=== PATIENT | male | born 1980 | race Caucasian/White ===

== ENCOUNTER 2020-03-26 21:22 | Emergency (ER) | payer MEDICAID, SELFPAY ==
[2020-03-26 21:30] VITALS: BP 143/93; PULSE 106; RESP 16; TEMP 37.3; O2SAT 98; BMI 18.2
--- NOTE | 2020-03-26 21:30 | HMH.EDGENADL ---
ED Disposition Clinical Impression: Cutaneous abscess Qualifiers: Site of cutaneous abscess: extremity Site of cutaneous abscess of extremity: lower extremity Laterality: left Qualified Code(s): L02.416 - Cutaneous abscess of left lower limb Disposition: Home, Self-Care Condition on Discharge: Good Instructions: DI for Incision and Drainage of a Skin Abscess Additional Instructions: Bactrim as prescribed. Ibuprofen for pain. Additional instructions for ABSCESS: Day one and two: Remove the bandage and shower the area, leaving the packing in place. Gently blot dry. Apply a bandage. Day three: Remove the bandage. Wet the packing in the shower and remove the packing. Apply a bandage. Days four and beyond: Clean area with soap and water in the shower daily. Apply a bandage daily until the wound is closed completely. Return to the emergency department if increasing pain, swelling, redness, redstreaks or fever greater than 101 degrees. Prescriptions: Sulfamethoxazole/Trimethoprim [Bactrim DS tablet] 1 each PO BID #20 tab Transmission Status: Pending to [facility]/pharmacy #[id number] Referrals: Amol Bass [Primary Care Provider] - - Critical Care Critical Care Time: No Attestation: On 03/26/20, the high probability of a clinically significant, sudden or life threatening deterioration of the following system(s) required my full and direct attention, intervention and personal management. The time I documented below is in addition to time spent performing reported procedures but includes the following listed in this critical care notation. Medical Decision Making - Nolan Inquiry Pt receiving controlled substance: No Vital Signs: 03/26/20 21:30 Temperature 99.1 F Temperature Source Oral Pulse Rate [Right Brachial] 106 H Respiratory Rate 16 Blood Pressure [Right Arm] 143/93 H Blood Pressure Mean [Right Arm] 109 Blood Pressure Source [Right Arm] Automatic Cuff Blood Pressure Position [Right Arm] Sitting 02 Sat by Pulse Oximetry 98 Oxygen Delivery Method Room Air Orders (Tests/Meds): ED MEDICATIONS Discontinued Medications Generic Name Dose Route Start Last Admin Trade Name Freq PRN Reason Stop Dose Admin Lidocaine/Epinephrine 10 ml 03/26/20 21:38 Lidocaine 2% W/Epi 1:100,000 20ml Vial IJ 03/26/20 21:39 ONCE ONE ORDERS Category Date Time Status Wound Culture and Gram Stain Stat Micro 03/26/20 21:39 Ordered General Adult HPI - General Stated complaint: spot on left leg Time Seen by Provider: 03/26/20 21:30 - History of Present Illness HPI narrative: 2-day history of a spot on his lower left anterior thigh. He thought it was a spider bite. Complains of pain associated with it. He went [facility] emergency department last night and he says they stuck a needle in it and got very little out . Incision and drainage was not performed. They gave him a prescription for antibiotic and ibuprofen. He did not have time to fill his prescriptions today. He returns because of increased pain. He also has developed a white spot over the surface of it that was not there yesterday. He daija an ink alirio around the area of redness yesterday himself. - Related Data Previous Rx's Medication Instructions Recorded Sulfamethoxazole/Trimethoprim 1 each PO BID #20 tab 03/26/20 [Bactrim DS tablet] Allergies Allergy/AdvReac Type Severity Reaction Status Date / Time codeine Allergy Severe Difficulty Verified 03/26/20 21:35 Breathing [facility] History - Hepatitis A Screen Attestation statement:: This patient has been screened for Hepatitis A risk factors. I have reviewed the patient's past medical history: Yes Medical History: Denies:: Cancer, Diabetes Mellitus Type 1, Diabetes Mellitus Type 2, MRSA Amputation: No Fractures: No - Social History Smoking Status: Current every day smoker Tobacco Type: cigarettes # Packs/Day (cigarettes): 1 Alcohol Intake: [place]
[2020-03-26 22:15] VITALS: BP 124/70; PULSE 98; RESP 17; TEMP 37.3; O2SAT 97
== END 2020-03-26 22:18 | disposition home or self-care (01) ==
PROVIDERS: Emergency Provider Emergency Medicine; PCP Pediatrics
DX: L02.416 Cutaneous abscess of left lower limb (principal); F17.210 Nicotine dependence, cigarettes, uncomplicated
CPT/HCPCS: 10060; 87070; 87186; 87205; 99283

== ENCOUNTER 2020-04-10 13:03 | Emergency (ER) | payer MEDICAID, SELFPAY ==
[2020-04-10 13:04] VITALS: BP 119/83; PULSE 89; RESP 18; TEMP 36.7; O2SAT 97; O2SAT 98; BMI 17.4
--- NOTE | 2020-04-10 13:22 | XR_ITS ---
PROCEDURE: XR CHEST 2V CLINICAL HISTORY: pain COMPARISON: CXR2V XR chest 2V from 07/25/2018 CXR2V XR chest 2V from 12/06/2018 FINDINGS: The cardiomediastinal silhouette and pulmonary vascularity are within normal limits. The lungs are clear without infiltrates, suspicious nodules, or pleural effusions. No acute bony abnormalities. IMPRESSION: No acute findings. Dictated by: Roland Woody MD 04/10/2020 14:40 Electronically signed by Roland Woody MD in [place] 04/10/2020 14:40
[2020-04-10 13:28] VITALS: BP 119/83; PULSE 89; RESP 18; TEMP 36.7; O2SAT 89; BMI 17.4
--- NOTE | 2020-04-10 13:42 | HMH.EDUTC ---
[facility] Disposition Clinical Impression: COPD exacerbation Disposition: Home, Self-Care Condition on Discharge: Good Instructions: Chronic Obstructive Pulmonary Disease Additional Instructions: Drink plenty of fluids. Take tylenol or ibuprofen for pain or fever. Take the medications as directed. Follow up with your regular doctor. GO TO THE ER FOR ANY WORSENING SYMPTOMS Don't start the oral steroids until tomorrow, since you had the shot here today. Prescriptions: methylPREDNISolone [Medrol] 4 mg PO DIRECTED 6 Days #21 tab.[email or web address] Transmission Status: Received by [facility]/pharmacy #[id number] Azithromycin [Z-Luiz 250mg Tab*] 250 mg PO UD DOSE PK #6 tab Transmission Status: Received by [facility]pharmacy #[id number] Referrals: Amol Bass [Primary Care Provider] - Forms: Work/School Release Time of Disposition: 14:09 Medical Decision Making - Medical Records Medical records reviewed: No: I reviewed the patient's medical records. - Nolan Inquiry Pt receiving controlled substance: No Vital Signs: 04/10/20 13:04 04/10/20 13:28 04/10/20 14:10 Temperature 98.1 F 98.1 F 98.1 F Temperature Source Oral Oral Pulse Rate 89 Pulse Rate [Left Radial] 89 89 Respiratory Rate 18 18 18 Blood Pressure 119/83 Blood Pressure [Right Arm] 119/83 119/83 Blood Pressure Mean [Right Arm] 95 95 Blood Pressure Source [Right Arm] Automatic Cuff Blood Pressure Position [Right Arm] Sitting Sitting 02 Sat by Pulse Oximetry 97 89 L Oxygen Delivery Method Room Air Room Air Orders (Tests/Meds): ED MEDICATIONS Discontinued Medications Generic Name Dose Route Start Last Admin Trade Name Norah PRN Reason Stop Dose Admin Ceftriaxone Sodium 1 gm 04/10/20 13:42 04/10/20 13:55 Rocephin 1gm Vial IM 04/10/20 13:43 1 gm ONCE ONE Administration Protocol Lidocaine HCl 0 ml 04/10/20 13:42 04/10/20 13:55 Lidocaine 1% 10ml Mdv IM 04/10/20 13:43 2.1 ml ONCE ONE Administration Methylprednisolone Sodium Succinate 125 mg 04/10/20 13:42 04/10/20 13:55 Solu-Medrol 125mg/2ml Vial IM 04/10/20 13:43 125 mg ONCE ONE Administration [facility] HPI - General Stated complaint: flare up with copd Time Seen by Provider: 04/10/20 13:42 Mode of Arrival: Ambulatory Source of Information: Patient Limitations: No Limitations Description of Symptoms (Recalled from Triage Doc. by RN): PATIENT C/O PAIN TO RIGHT UPPER RIB AREA AND UPPER RIGHT BACK/ SHOULDER AREA THAT INCREASES WITH INSPIRATION. DENIES FEVER AND COUGH. HE STATES HE HAS COPD AND THIS PAIN IS SIMILAR TO PAST FLAREUPS HEENT Symptoms (Recalled from RN notes): No Resp Symptoms (Recalled from RN notes): Yes Skin Symptoms (Recalled from RN notes): No MS Symptoms (Recalled from RN notes): Yes Functional Status (Recalled from RN notes): WNL - History of Present Illness Provider Complaint: He reports that he thinks that he is having a flare up of his copd. He also reports pleuritic type right sided chest pain at time. He has a history of copd. - Related Data Previous Rx's Medication Instructions Recorded Azithromycin [Z-Luiz 250mg Tab*] 250 mg PO UD DOSE PK #6 tab 04/10/20 methylPREDNISolone [Medrol] 4 mg PO DIRECTED 6 Days #21 04/10/20 tab.[email or web address] Allergies Allergy/AdvReac Type Severity Reaction Status Date / Time codeine Allergy Severe Difficulty Verified 03/26/20 21:35 Breathing - Worker's Comp Is this a Worker's Comp case?: No [facility] History - Hepatitis A Screen Drug use history?: No High risk sexual behaviors?: No History of sexually transmitted infection?: No Currently employed?: No Childcare worker?: No Do you have indoor plumbing?: Yes Do you have electricity?: Yes Attestation statement:: This patient has been screened for Hepatitis A risk factors. I have reviewed the patient's past medical history: Yes Medical History: Denies:: Cancer, Diabetes Mellitus Type 1, Diabetes Mellitus Type 2, MRSA Amputation: No
[2020-04-10 14:10] VITALS: BP 119/83; PULSE 89; RESP 18; TEMP 36.7; O2SAT 98
== END 2020-04-10 14:15 | disposition home or self-care (01) ==
LOC: ER 13:16 → UTC 13:18
PROVIDERS: Emergency Provider Nurse Practitioner Family; PCP Pediatrics
DX: J44.1 Chronic obstructive pulmonary disease with (acute) exacerbation (principal); F17.210 Nicotine dependence, cigarettes, uncomplicated; Z88.5 Allergy status to narcotic agent
CPT/HCPCS: 71046; 96372; 99202